=== PATIENT | male | born 1985 | race Caucasian/White ===

== ENCOUNTER 2017-09-08 08:10 | Emergency (ER) | payer OTHER ==
[2017-09-08 08:25] VITALS: BP 119/76
[2017-09-08] MEDS ORDERED: DEXAMETHASONE 10 MG/ML VIAL PO STA (09:06)
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
--- NOTE | 2017-09-08 09:08 | ED Physician Documentation ---
PD HPI UPPER EXT INJURY - Stated complaint Stated Complaint: RT SHDLR PX/GLF - Chief complaint Chief Complaint: Ext Problem - History obtained from History obtained from: Patient - History of Present Illness Location: Right, Shoulder Type of injury: Other (lifting) Where injury occurred: Work Timing - onset: Today Timing - duration: Hours Timing - details: Abrupt onset, Still present Improved by: Rest, Immobilization Worsened by: Moving, Palpating Associated symptoms: No: Weakness, Numbness, Tingling, Swelling Contributing factors: No: Anticoagulated Similar symptoms before: Diagnosis (shoulder dislocation with labrum tear) Recently seen: Not recently seen - Additonal information Additional information: 32-year-old male with a history of recurrent shoulder dislocations and labrum tears bilaterally has lifted a 50 pound box at work this morning and felt a tear in his shoulder with a pop and has had pain since then. He does not feel that his shoulder is out of joint but he is unable to move his shoulder through a range of motion without significant pain and a feeling of fullness. He has pain that extends up into his neck. Review of Systems Constitutional: denies: Fever Eyes: denies: Decreased vision Ears: denies: Ear pain Nose: denies: Congestion Throat: denies: Sore throat Respiratory: denies: Dyspnea, Cough GI: denies: Vomiting Musculoskeletal: reports: Neck pain, Joint pain. denies: Back pain, Joint swelling Neurologic: denies: Generalized weakness, Focal weakness, Numbness PD PAST MEDICAL HISTORY - Past Medical History Past Medical History: No - Present Medications Home Medications: Ambulatory Orders Medication Instructions Recorded Confirmed HYDROcod/ACETAM 5/325 [Climax 5/325] 1 - 2 ea PO Q6H PRN #15 tablet 09/08/17 - Allergies Allergies/Adverse Reactions: Allergies Allergy/AdvReac Type Severity Reaction Status Date / Time No Known Drug Allergies Allergy Verified 09/08/17 08:24 - Social History Does the pt smoke?: No Smoking Status: Never smoker PD ED PE NORMAL - Vitals Vital signs reviewed: Yes (Normal) - General General: Alert and oriented X 3, No acute distress, Well developed/nourished, Other (32-year-old fit appearing male was sitting upright with his shoulder in a sling he does appear to be splinting on the right side.) - HEENT HEENT: Atraumatic, PERRL, EOMI - Neck Neck: Supple, no meningeal sign, No bony TTP - Respiratory Respiratory: No respiratory distress - Derm Derm: Normal color, Warm and dry, No rash - Extremities Extremities: No deformity, No edema, Other (There is tenderness to the deltoid anteriorly and posteriorly and there is restriction to the range of motion the patient is able to abduct the shoulder and holds it in abduction by himself. Distal neurovascular components are intact.) - Neuro Neuro: Alert and oriented X 3, No motor deficit, No sensory deficit Eye Opening: Spontaneous Motor: Obeys Commands Verbal: Oriented GCS Score: 15 - Psych Psych: Normal mood, Normal affect Results - Vitals Vitals: Vital Signs - 24 hr 09/08/17 08:22 Temperature 36.5 C Heart Rate 80 Respiratory 16 Rate Blood Pressure 119/76 O2 Saturation 100 - Rads (name of study) Right shoulder Radiology: Prelim report reviewed, EMP read indepedently, See rad report PD MEDICAL DECISION MAKING - ED course Complexity details: reviewed results, re-evaluated patient, considered differential, d/w patient ED course: 32-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 He is administered dexamethasone 10 mg orally and we will put him on some pain medication and into a sling to help follow-up with orthopedics at [facility]. Departure - Departure Disposition: 01 Home, Self Care Clinical Impression: Strain of right shoulder Qualifiers: Encounter type: initial encounter Qualified Code(s): S46.911A - Strain of unspecified muscle, fascia and tendon at shoulder and upper arm level, right arm , initial encounter Condition: Stable Instructions: ED Sprain Shoulder Follow-Up: [facility] [Provider Group] Prescriptions: HYDROcod/ACETAM 5/325 [Climax 5/325] 1 - 2 ea PO Q6H PRN #15 tablet PRN Reason: Pain Forms: Activity restrictions Discharge Date/Time: 09/08/17 09:43
[2017-09-08] MEDS ORDERED: CHERRY SYRUP 10 ML UDC PO ONE (09:31)
== END 2017-09-08 09:43 | disposition home or self-care (01) ==
LOC: EDBD 08:10 → ED 08:10
DX: S46.911A Strain of unspecified muscle, fascia and tendon at shoulder and upper arm level, right arm, initial encounter (principal); X50.0XXA Overexertion from strenuous movement or load, initial encounter; Y99.0 Civilian activity done for income or pay
CPT/HCPCS: 73030; 99283; A9270

== ENCOUNTER 2018-08-03 09:18 | Outpatient (CLI) | payer OTHER | END 2018-08-03 09:19 | disposition home or self-care (01) | LOC: SC 09:18 | PROVIDERS: ATTEND Internal Medicine Pulmonary Disease | DX: R06.81 Apnea, not elsewhere classified (principal); G47.10 Hypersomnia, unspecified; R06.83 Snoring; G47.8 Other sleep disorders; R41.89 Other symptoms and signs involving cognitive functions and awareness | CPT/HCPCS: 99203; 99212 ==

== ENCOUNTER 2018-08-09 20:30 | Outpatient (CLI) | payer OTHER | END 2018-08-09 20:31 | disposition home or self-care (01) | LOC: SC 20:30 | PROVIDERS: ATTEND Internal Medicine Pulmonary Disease | DX: R06.83 Snoring (principal); R06.81 Apnea, not elsewhere classified | CPT/HCPCS: 95810 ==